=== PATIENT | female | born 1940 | race African-American/Black ===

== ENCOUNTER 2022-05-20 02:09 | Emergency (ER) | payer OTHER, MEDICAID ==
[~2022-05-20] VITALS: Ht 162.6 cm; Wt 65.0 kg
[2022-05-20] MEDS ORDERED: HYDROCODONE/ACETAMINOPHEN 5/325MG TABLET PO STA (05:30)
[2022-05-20 06:25] LABS: HEMATOCRIT. 24.3 % (36.0-48.0); HEMOGLOBIN. 7.7 g/dL (12.0-16.0); MEAN CORPUSCULAR HEMOGLOBIN 19.6 pg (28.0-32.0); MEAN CORPUSCULAR VOLUME 61.9 fL (81.0-99.0); MEAN PLATELET VOLUME 9.2 fl (7.4-10.4); PLATELET 194 x1000/uL (130-400); RED BLOOD CELL COUNT 3.93 mill/uL (4.2-5.4); RED CELL DISTRIBUTION WIDTH 20.9 % (11.6-14.6)
[2022-05-20 06:36] LABS: CHLORIDE 105 mEq/L (98-107)
[2022-05-20 08:30] LABS: PLATELET ESTIMATE NORMAL
[2022-05-20 08:45] VITALS: BP 177/80
== END 2022-05-20 09:10 | disposition home or self-care (01) ==
LOC: ER 02:09
DX: S70.01XA Contusion of right hip, initial encounter (principal); I12.0 Hypertensive chronic kidney disease with stage 5 chronic kidney disease or end stage renal disease; N18.6 End stage renal disease; Z99.2 Dependence on renal dialysis; N17.9 Acute kidney failure, unspecified; I69.393 Ataxia following cerebral infarction; I69.328 Other speech and language deficits following cerebral infarction; W01.0XXA Fall on same level from slipping, tripping and stumbling without subsequent striking against object, initial encounter; Y93.89 Activity, other specified; Y92.9 Unspecified place or not applicable
CPT/HCPCS: 36415; 71045; 73502; 80053; 85025; 99284

== ENCOUNTER 2023-06-01 22:32 | Emergency (ER) | payer OTHER, MEDICAID ==
[~2023-06-01] VITALS: Ht 157.5 cm; Wt 87.0 kg
[2023-06-01 22:35] VITALS: O2SAT 96
[2023-06-01] MEDS ORDERED: NITROGLYCERIN 0.4MG TABLET SL SL NR (22:45)
[2023-06-02] MEDS ORDERED: METOPROLOL SUCCINATE 50MG ER TABLET PO ONE (00:15)
[2023-06-02] MEDS ORDERED: HYDRALAZINE 20MG/ML VIAL IV ONE ×2 (00:15→05:00)
[2023-06-02 00:24] LABS: BASOPHILS % 1.2 % (0.0-2.0); EOSINOPHILS % 1.4 % (0.0-5.0); HEMATOCRIT. 37.1 % (36.0-48.0); HEMOGLOBIN. 11.6 g/dL (12.0-16.0); LYMPHOCYTES % 11.8 % (20.0-50.0); MEAN CORPUSCULAR HEMOGLOBIN 28.4 pg (28.0-32.0); MEAN CORPUSCULAR HGB CONC 31.4 g/dL (31.0-37.0); MEAN CORPUSCULAR VOLUME 90.7 fL (81.0-99.0); MEAN PLATELET VOLUME 10.8 fl (7.4-10.4); MONOCYTES % 10.3 % (2.0-8.0); NEUTROPHILS % 75.3 % (40.0-76.0); PLATELET 139 x1000/uL (130-400); RED BLOOD CELL COUNT 4.09 mill/uL (4.2-5.4); RED CELL DISTRIBUTION WIDTH 17.9 % (11.6-14.6)
[2023-06-02 00:28] LABS: CHLORIDE 99 mEq/L (98-107); INDEX HEMOLYSI 4 (1-3); INDEX ICTERIC 1 (1-4); INDEX LIPEMIC 1 (1-3); SODIUM 136 mEq/L (136-145)
[2023-06-02 00:37] LABS: ALANINE AMINOTRANSFERASE 15 IU/L (13-61); ALBUMIN 2.9 g/dL (3.4-5.0); ASPARTATE AMINOTRANSFERASE 32 IU/L (15-37); BILIRUBIN TOTAL 0.7 mg/dL (0.1-1.0); CALCIUM 8.8 mg/dL (8.5-10.1); CARBON DIOXIDE 29 mEq/L (21-32); CREATININE 4.4 mg/dL (0.6-1.3); ETHANOL BLOOD < 10 mg/dL (-10); GLUCOSE 101 mg/dL (70-105); NT PRO B-TYPE NATRIURETIC PEP 14907 pg/mL (5-125); PROTEIN TOTAL 7.5 g/dL (6.0-8.3); TROPONIN I HIGH SENSITIVITY 23 ng/L (<54); UREA NITROGEN BLOOD 19 mg/dL (7-21)
[2023-06-02 03:34] LABS: TROPONIN I HIGH SENSITIVITY 23 ng/L (<54)
[2023-06-02] MEDS ORDERED: METOPROLOL TARTRATE 50MG TABLET PO ONE (05:00)
[2023-06-02 06:39] VITALS: BP 166/73; PULSE 84; RESP 13; TEMP 98.2
[2023-06-02 10:13] LABS: *AMPHETAMINES SCREEN URINE NEGATIVE (NEGATIVE); *BARBITURATES SCREEN URINE NEGATIVE (NEGATIVE); *BENZODIAZEPINES SCREEN URINE NEGATIVE (NEGATIVE); *COCAINE SCREEN URINE NEGATIVE (NEGATIVE); CANNABINOID URINE SCREEN NEGATIVE (NEGATIVE); ECSTASY MDMA SCREEN URINE NEGATIVE (NEGATIVE); METHADONE URINE SCREEN NEGATIVE (NEGATIVE); OPIATES URINE SCREEN NEGATIVE (NEGATIVE); PHENCYCLIDINE URINE SCREEN NEGATIVE (NEGATIVE)
== END 2023-06-02 07:15 | disposition short-term general hospital (02) ==
LOC: ER 22:32
DX: U07.1 COVID-19 (principal); E87.70 Fluid overload, unspecified; I12.0 Hypertensive chronic kidney disease with stage 5 chronic kidney disease or end stage renal disease; N18.6 End stage renal disease; Z88.6 Allergy status to analgesic agent; Z91.041 Radiographic dye allergy status; Z86.73 Personal history of transient ischemic attack (TIA), and cerebral infarction without residual deficits
CPT/HCPCS: 80053; 80320; 83880; 85025; 84484 ×2; 36415 ×2; 71045; 93005; 99285; 87426; 80305; 96374; 96376; C9803; J0360; G0480

== ENCOUNTER 2023-08-11 08:11 | Emergency (ER) | payer OTHER, MEDICAID ==
[~2023-08-11] VITALS: Ht 170.2 cm; Wt 73.0 kg
[2023-08-11 08:18] VITALS: O2SAT 96
[2023-08-11 08:55] LABS: CHLORIDE 100 mEq/L (98-107); INDEX HEMOLYSI 1 (1-3); INDEX ICTERIC 1 (1-4); INDEX LIPEMIC 1 (1-3); POTASSIUM 3.7 mEq/L (3.5-5.1); SODIUM 137 mEq/L (136-145)
[2023-08-11 09:00] LABS: BASOPHILS % 0.4 % (0.0-2.0); EOSINOPHILS % 0.5 % (0.0-5.0); HEMATOCRIT. 39.9 % (36.0-48.0); HEMOGLOBIN. 12.8 g/dL (12.0-16.0); LYMPHOCYTES % 10.3 % (20.0-50.0); MEAN CORPUSCULAR HGB CONC 32.2 g/dL (31.0-37.0); MEAN CORPUSCULAR VOLUME 87.2 fL (81.0-99.0); MONOCYTES % 13.6 % (2.0-8.0); NEUTROPHILS % 75.2 % (40.0-76.0); PLATELET 110 x1000/uL (130-400); RED BLOOD CELL COUNT 4.58 mill/uL (4.2-5.4); RED CELL DISTRIBUTION WIDTH 17.8 % (11.6-14.6); WHITE BLOOD COUNT 7.6 x1000/uL (4.5-11.0)
[2023-08-11 09:05] LABS: ALANINE AMINOTRANSFERASE 10 IU/L (13-61); ALBUMIN 3.2 g/dL (3.4-5.0); ASPARTATE AMINOTRANSFERASE 11 IU/L (15-37); BILIRUBIN TOTAL 1.2 mg/dL (0.1-1.0); CALCIUM 9.7 mg/dL (8.5-10.1); CARBON DIOXIDE 26 mEq/L (21-32); GLUCOSE 111 mg/dL (70-105); NT PRO B-TYPE NATRIURETIC PEP 10407 pg/mL (5-125); PROTEIN TOTAL 8.2 g/dL (6.0-8.3); UREA NITROGEN BLOOD 33 mg/dL (7-21)
[2023-08-11 09:27] LABS: CREATININE 7.1 mg/dL (0.6-1.3); TROPONIN I HIGH SENSITIVITY 174 ng/L (<54)
[2023-08-11 12:51] LABS: TROPONIN I HIGH SENSITIVITY 162 ng/L (<54)
[2023-08-11 15:20] VITALS: BP 158/79; PULSE 94; RESP 16; TEMP 98.7
== END 2023-08-11 15:52 | disposition short-term general hospital (02) ==
LOC: ER 08:21
DX: N17.9 Acute kidney failure, unspecified (principal); I12.0 Hypertensive chronic kidney disease with stage 5 chronic kidney disease or end stage renal disease; R79.89 Other specified abnormal findings of blood chemistry; K21.9 Gastro-esophageal reflux disease without esophagitis; F19.90 Other psychoactive substance use, unspecified, uncomplicated; Z91.040 Latex allergy status; Z98.890 Other specified postprocedural states; Z88.6 Allergy status to analgesic agent
CPT/HCPCS: 99285; 71045; 80053; 83880; 85025; 84484; 36415; 93005; C1893

== ENCOUNTER 2023-09-19 08:28 | Emergency (ER) | payer MEDICAID, OTHER ==
[~2023-09-19] VITALS: Ht 167.6 cm; Wt 69.0 kg
[2023-09-19 08:33] VITALS: O2SAT 98
[2023-09-19] MEDS ORDERED: HYDRALAZINE 20MG/ML VIAL IV ONE ×3 (09:15→17:00)
[2023-09-19] MEDS ORDERED: METOPROLOL TARTRATE 25MG TABLET PO ONE (09:30)
[2023-09-19 10:07] LABS: BASOPHILS % 1.6 % (0.0-2.0); EOSINOPHILS % 1.1 % (0.0-5.0); HEMATOCRIT. 31.9 % (36.0-48.0); HEMOGLOBIN. 10.2 g/dL (12.0-16.0); LYMPHOCYTES % 9.9 % (20.0-50.0); MEAN CORPUSCULAR HEMOGLOBIN 28.8 pg (28.0-32.0); MEAN CORPUSCULAR HGB CONC 31.9 g/dL (31.0-37.0); MEAN CORPUSCULAR VOLUME 90.3 fL (81.0-99.0); MEAN PLATELET VOLUME 9.7 fl (7.4-10.4); MONOCYTES % 8.7 % (2.0-8.0); NEUTROPHILS % 78.7 % (40.0-76.0); PLATELET 192 x1000/uL (130-400); RED BLOOD CELL COUNT 3.53 mill/uL (4.2-5.4); RED CELL DISTRIBUTION WIDTH 18.2 % (11.6-14.6); WHITE BLOOD COUNT 6.7 x1000/uL (4.5-11.0)
[2023-09-19 10:26] LABS: ALANINE AMINOTRANSFERASE < 7 IU/L (10-49); ALBUMIN 3.5 g/dL (3.2-4.8); ASPARTATE AMINOTRANSFERASE 12 IU/L (<34); BILIRUBIN TOTAL 0.7 mg/dL (0.1-1.0); CALCIUM 8.9 mg/dL (8.7-10.4); CARBON DIOXIDE 19 mEq/L (21-32); CHLORIDE 109 mEq/L (98-107); GLUCOSE 70 mg/dL (70-105); POTASSIUM 4.8 mEq/L (3.5-5.1); PROTEIN TOTAL 6.7 g/dL (6.0-8.3); SODIUM 141 mEq/L (136-145); UREA NITROGEN BLOOD 45 mg/dL (9-23)
[2023-09-19] MEDS ORDERED: METOPROLOL TARTRATE 25MG TABLET PO NR (12:15)
[2023-09-19] MEDS ORDERED: HYDRALAZINE 20MG/ML VIAL IV NR ×2 (12:15→13:00)
[2023-09-19 12:48] LABS: CREATININE 8.8 mg/dL (0.6-1.0)
[2023-09-19] MEDS ORDERED: BENZ1TAB78 MT (15:52)
[2023-09-19] MEDS ORDERED: SODIUM BICARBONATE 8.4% 1 MEQ/ML 50ML SYR IV NR (16:15)
[2023-09-19] MEDS ORDERED: CLONIDINE 0.1MG TABLET PO NR (17:00)
[2023-09-19] MEDS ORDERED: CLONIDINE 0.2MG TABLET PO ONE (17:00)
[2023-09-19 19:00] VITALS: TEMP 98.1
[2023-09-19 21:19] VITALS: BP 140/55; PULSE 85; RESP 16
== END 2023-09-19 21:22 | disposition short-term general hospital (02) ==
LOC: ER 08:46 → CANBEDREQ 09-20 19:55
DX: I12.0 Hypertensive chronic kidney disease with stage 5 chronic kidney disease or end stage renal disease (principal); N18.6 End stage renal disease; F19.90 Other psychoactive substance use, unspecified, uncomplicated; E87.20 Acidosis, unspecified; Z99.2 Dependence on renal dialysis; Z90.13 Acquired absence of bilateral breasts and nipples; Z91.013 Allergy to seafood
CPT/HCPCS: 99291; 96374; 96375; 80053; 85025; 36415; 71045; 96376; J0360; J3490

== ENCOUNTER 2023-11-24 13:42 | Emergency (ER) | payer MEDICARE, OTHER ==
[~2023-11-24] VITALS: Ht 157.5 cm; Wt 59.0 kg
[2023-11-24 13:50] VITALS: O2SAT 97
[2023-11-24] MEDS ORDERED: SODIUM CHLORIDE 0.9% 500 ML IV ONE (14:00)
[2023-11-24 14:33] LABS: HEMATOCRIT. 35.2 % (36.0-48.0); HEMOGLOBIN. 11.4 g/dL (12.0-16.0); MEAN CORPUSCULAR HEMOGLOBIN 28.4 pg (28.0-32.0); MEAN CORPUSCULAR HGB CONC 32.4 g/dL (31.0-37.0); MEAN CORPUSCULAR VOLUME 87.8 fL (81.0-99.0); MEAN PLATELET VOLUME 9.4 fl (7.4-10.4); PLATELET 166 x1000/uL (130-400); RED BLOOD CELL COUNT 4.01 mill/uL (4.2-5.4); RED CELL DISTRIBUTION WIDTH 15.6 % (11.6-14.6); WHITE BLOOD COUNT 6.4 x1000/uL (4.5-11.0)
[2023-11-24 14:37] LABS: INR 1.1; PROTHROMBIN TIME 11.4 sec (9.6-11.0)
[2023-11-24 14:38] LABS: DIFFERENTIAL COMMENT 1
[2023-11-24 14:40] LABS: ALANINE AMINOTRANSFERASE < 7 IU/L (10-49); ASPARTATE AMINOTRANSFERASE 18 IU/L (<34); BILIRUBIN TOTAL 0.7 mg/dL (0.1-1.0); CALCIUM 9.3 mg/dL (8.7-10.4); CARBON DIOXIDE 30 mEq/L (21-32); CHLORIDE 95 mEq/L (98-107); GLUCOSE 114 mg/dL (70-105); PROTEIN TOTAL 7.3 g/dL (6.0-8.3); SODIUM 134 mEq/L (136-145); UREA NITROGEN BLOOD 13 mg/dL (9-23)
[2023-11-24 14:45] LABS: CREATININE 3.7 mg/dL (0.6-1.0)
[2023-11-24 15:00] VITALS: TEMP 98.6
[2023-11-24 15:10] LABS: GIANT PLATELETS 1+; PLATELET ESTIMATE NORMAL
[2023-11-24 18:50] VITALS: BP 119/41; PULSE 85; RESP 17
== END 2023-11-24 22:57 | disposition short-term general hospital (02) ==
LOC: ER 13:42 → EDBEDREQ 14:04 → CANBEDREQ 15:45 → ER 22:57
DX: R41.82 Altered mental status, unspecified (principal); E87.6 Hypokalemia; E11.9 Type 2 diabetes mellitus without complications; E78.00 Pure hypercholesterolemia, unspecified; I12.0 Hypertensive chronic kidney disease with stage 5 chronic kidney disease or end stage renal disease; N18.6 End stage renal disease; E03.9 Hypothyroidism, unspecified; D64.9 Anemia, unspecified; Z99.2 Dependence on renal dialysis; Z85.9 Personal history of malignant neoplasm, unspecified; Z90.13 Acquired absence of bilateral breasts and nipples; Z98.890 Other specified postprocedural states; Z91.018 Allergy to other foods; Z88.8 Allergy status to other drugs, medicaments and biological substances
CPT/HCPCS: 99285; 96360; 70450; 96361; 80053; 82962; 83605; 83690; 85025; 85610; 36415; J7030; C1893